=== PATIENT | female | born 1970 | race Two or more races ===

== ENCOUNTER 2019-06-15 08:31 | Outpatient (CLI) | payer OTHER | END 2019-06-15 08:59 | disposition home or self-care (01) | LOC: SONOGRAMA 08:31 | DX: E04.1 Nontoxic single thyroid nodule (principal) ==

== ENCOUNTER 2024-04-16 06:28 | Day surgery (SDC) | payer OTHER ==
[2024-04-16] MEDS ORDERED: CEFAZOLIN SODIUM 1,000 MG VIAL ONE (07:17)
[2024-04-16] MEDS ORDERED: ENOXAPARIN SODIUM 40 MG/0.4 ML SYRINGE SUBCUTANEO ONE (07:18)
[2024-04-16] MEDS ORDERED: EPINEPHRINE HCL/PF 1 MG/ML AMPUL ONE (08:25)
[2024-04-16] MEDS ORDERED: LIDOCAINE HCL 1%/EPINEPHRINE 20ML VIAL IJ ONE ×2 (08:26→08:28)
[2024-04-16] MEDS ORDERED: TRANEXAMIC ACID 100MG/1ML (1000MG) AMPUL IV ONE ×2 (09:16→10:20)
[2024-04-16] MEDS ORDERED: POVIDONE-IODINE 118 ML BOTT TOP ONE ×2 (09:40→13:11)
== END 2024-04-16 18:20 | disposition home or self-care (01) ==
LOC: CIR.AMB 06:28
PROVIDERS: ATTEND Specialist
DX: E65 Localized adiposity (principal); N64.81 Ptosis of breast; N64.89 Other specified disorders of breast; E66.8 Other obesity; L98.7 Excessive and redundant skin and subcutaneous tissue; E11.9 Type 2 diabetes mellitus without complications